=== PATIENT | female | born 1940 | race Caucasian/White ===

== ENCOUNTER → 2018-02-20 | Outpatient (CLI) | payer OTHER | END | disposition home or self-care (01) | LOC: SURGPAT 14:15 | DX: Z01.818 Encounter for other preprocedural examination (principal); I10 Essential (primary) hypertension; E03.9 Hypothyroidism, unspecified; E78.00 Pure hypercholesterolemia, unspecified; R91.8 Other nonspecific abnormal finding of lung field | CPT/HCPCS: 71046; 93005 ==

== ENCOUNTER → 2018-02-26 | Outpatient (CLI) | payer OTHER | END | disposition home or self-care (01) | LOC: LAB 08:37 | DX: Z53.21 Procedure and treatment not carried out due to patient leaving prior to being seen by health care provider (principal) | CPT/HCPCS: 36415; 86850; 86900; 86901 ==

== ENCOUNTER 2018-02-27 05:36 | Observation (INO) | payer OTHER ==
[2018-02-27] MEDS ORDERED: ESTROGENS, CONJ VAGINAL CREAM 30GM TUBE. (06:30)
[2018-02-27] MEDS: IV RINGERS,LACTATED 1000ML 1,000 ML IV (07:00)
[2018-02-27] MEDS ORDERED: fentaNYL PF VIAL 100 MCG/2 ML VIAL IV (07:00)
[2018-02-27] MEDS ORDERED: ONDANSETRON PF 4 MG/2 ML VIAL. IV ×2 (07:00→10:00)
[2018-02-27] MEDS ORDERED: PROCHLORPERAZINE 10 MG/2 ML VIAL. IV (07:00)
[2018-02-27] MEDS ORDERED: LIDOCAINE 1% PF 2 ML VIAL. ID (07:00)
[2018-02-27] MEDS ORDERED: MORPHINE SULFATE 4 MG/ML DISP.SYRIN. IV ×2 (07:00→10:00)
[2018-02-27] MEDS ORDERED: LIDOCAINE 2% PF Vial for OR 5 ML VIAL. (07:16)
[2018-02-27] MEDS ORDERED: PROPOFOL 20 ML IV (07:16)
[2018-02-27] MEDS ORDERED: ROCURONIUM 50 MG/5 ML VIAL. (07:16)
[2018-02-27] MEDS ORDERED: fentaNYL PF VIAL 100 MCG/2 ML VIAL ×2 (07:16→10:05)
[2018-02-27] MEDS ORDERED: ONDANSETRON PF 4 MG/2 ML VIAL. (07:16)
[2018-02-27] MEDS ORDERED: DEXAMETHASONE SOD PHOS 20 MG/5 ML VIAL. (07:16)
[2018-02-27] MEDS ORDERED: BUPIVACAINE-EPI 0.25%-1:200000 50 ML VIAL. (07:56)
[2018-02-27] MEDS: BUPIVACAINE-EPI 0.25%-1:200000 50 ML VIAL. (08:04)
[2018-02-27] MEDS ORDERED: SEVOFLURANE > 120 MINUTES. IH (08:32)
[2018-02-27] MEDS ORDERED: NEOSTIGMINE METHYLSULFATE 5 MG/5 ML SYRINGE. (08:41)
[2018-02-27] MEDS ORDERED: GLYCOPYRROLATE 1 MG/5 ML VIAL. (08:42)
[2018-02-27] MEDS: CETIRIZINE HCL 10 MG TABLET. PO (09:00)
[2018-02-27] MEDS ORDERED: NALOXONE 0.4 MG/ML VIAL. IV (10:00)
[2018-02-27] MEDS ORDERED: SIMETHICONE 80 MG TAB.CHEW PO (10:00)
[2018-02-27] MEDS ORDERED: ZOLPIDEM 5 MG TABLET. PO (10:00)
[2018-02-27] MEDS ORDERED: diphenhydrAMINE 50 MG/ML VIAL IV (10:00)
[2018-02-27] MEDS ORDERED: 0.9 % SODIUM CHLORIDE 10 ML DISP.SYRIN. IV (10:00)
[2018-02-27] MEDS ORDERED: CALCIUM CARBONATE 500 MG TAB.CHEW PO (10:00)
[2018-02-27] MEDS ORDERED: oxyCODONE/APAP 5/325 1 TAB TABLET PO (10:00)
[2018-02-27] MEDS ORDERED: LACTULOSE 20 GM/30 ML SOLUTION. PO (10:00)
[2018-02-27] MEDS ORDERED: MAGNESIUM HYDROXIDE 2,400 MG/30 ML ORAL.SUSP. PO (10:00)
[2018-02-27] MEDS ORDERED: diphenhydrAMINE HCL 25 MG CAPSULE PO (10:00)
[2018-02-27] MEDS ORDERED: MAG HYDROX/ALUMINUM HYD/SIMETH 30 ML ORAL.SUSP PO (10:00)
[2018-02-27] MEDS: fentaNYL PF VIAL 100 MCG/2 ML VIAL IV (10:12)
[2018-02-27] MEDS: ATORVASTATIN CALCIUM 20 MG TABLET PO (21:16)
[2018-02-27] MEDS: OXYBUTYNIN CHLORIDE 5 MG TABLET PO (21:16)
[2018-02-27] MEDS: HYDROcodone/APAP 5/325MG 1 TAB TABLET PO (21:17)
[2018-02-28 04:47] LABS: HEMATOCRIT 34.4 % (36.0-47.0)
[2018-02-28] MEDS ORDERED: amLODIPine BESYLATE 5 MG TABLET PO (07:00)
[2018-02-28] MEDS ORDERED: LISINOPRIL 20 MG TABLET PO (07:00)
[2018-02-28] MEDS ORDERED: DOCUSATE SODIUM 100 MG CAPSULE. PO (07:00)
[2018-02-28] MEDS: LEVOTHYROXINE 125 MCG TABLET PO (07:30)
[2018-02-28] MEDS ORDERED: RALOXIFENE 60 MG TABLET. PO (09:00)
[2018-02-28 10:03] LABS: ANION GAP 7 (6-14); BLOOD UREA NITROGEN 18 mg/dL (7-20); CALCIUM 8.4 mg/dL (8.5-10.1); CARBON DIOXIDE 29 mmol/L (21-32); CHLORIDE 105 mmol/L (98-107); CREATININE 0.6 mg/dL (0.6-1.0); GFR 97.2; GLUCOSE 111 mg/dL (70-99); POTASSIUM 3.4 mmol/L (3.5-5.1); SODIUM 141 mmol/L (136-145)
== END 2018-02-28 09:45 | disposition home or self-care (01) ==
LOC: SURG 05:36 → 3 NORTH 10:00
DX: N72 Inflammatory disease of cervix uteri (principal); N83.8 Other noninflammatory disorders of ovary, fallopian tube and broad ligament; N81.3 Complete uterovaginal prolapse; N80.0 Endometriosis of uterus; K66.0 Peritoneal adhesions (postprocedural) (postinfection)
CPT/HCPCS: 36415; 80048; 85014; 86850; 86900; 86901; 88307; A7015; G0378; G0379; J0690; J1100; J2405; J2704; J2710; J3010; J3490; J7030; J7120

== ENCOUNTER 2019-06-13 17:16 | Emergency (ER) | payer OTHER ==
[~2019-06-13] VITALS: Ht 172.7 cm; Wt 68.9 kg
[~2019-06-13 17:16] MED LIST changes: -HYDR-2761 PO
[2019-06-13 17:40] VITALS: BP 159/69
--- NOTE | 2019-06-13 17:57 | PHYS DOC ---
Past Medical History Past Medical History: Hypertension (BIPIN FLORIAN DO) Past Surgical History: Cholecystectomy (BIPIN FLORIAN DO) Smoking: Cigarettes Alcohol Use: Occasionally Drug Use: None (BIPIN FLORIAN DO) Adult General Chief Complaint Chief Complaint: LOWEREXTREMITY INJURY HPI HPI Patient is a 79 year old female who presents with 11 days ago she was in the garage and tripped and fell injuring the right lower leg. Patient states that the swelling to her right lower leg has gone down dramatically over the past 11 days and she has been ambulating on it. Patient states when she is sitting still and not bringing pressure on the right leg that she has no pain. Patient states that that when she stands up on the leg her pain will be an 8 out of 10 and sharp pain. Patient is the bruising has gotten better also. The bruising has gone down into the toes and there is slight healing bruise to the right lower leg into the ankle and top of the foot. There is 2+ edema to the right lower leg into the ankle and the dorsal foot. Patient can move the ankle with intact range of motion with her toes. Patient denies any numbness or tingling or temperature change in the extremity or skin color change. Skin is pink warm and dry. Pedal pulses strong and present. Cap refill less than 3 seconds. Patient states she has been taking Aleve at home and it has been helping her pain. Patient currently rating her pain a 0 out of 10. (REYNALDO ALVARADO APRN) Review of Systems Review of Systems Constitutional: Denies fever or chills [] Musculoskeletal: Right lower extremity fracture. Denies back pain or joint pain [] Integument: Denies rash or skin lesions [] Neurologic: Denies headache, focal weakness or sensory changes [] All other systems were reviewed and found to be within normal limits, except as documented in this note. (REYNALDO ALVARADO APRN) Allergies Allergies Allergies Coded Allergies Type Severity Reaction Last Updated Verified Sulfa (Sulfonamide Antibiotics) Allergy Intermediate Rash 02/20/18 No (BIPIN FLORIAN DO) Physical Exam Physical Exam Constitutional: Well developed, well nourished, no acute distress, non-toxic appearance. [] Skin: Warm, dry, no erythema, no rash. Healing bruising noted to right lower leg, ankle and foot. [] Back: No tenderness, no CVA tenderness. [] Extremities: Right lower fibula tenderness, no cyanosis, no clubbing, ROM intact, Right lower leg, ankle and foot 2+ edema. [] Neurologic: Alert and oriented X 3, normal motor function, normal sensory function, no focal deficits noted. [] Psychologic: Affect normal, judgement normal, mood normal. [] (REYNALDO ALVARADO APRN) Current Patient Data Vital Signs Vital Signs Date Time Temp Pulse Resp B/P (MAP) Pulse Ox O2 Delivery O2 Flow Rate FiO2 06/13/19 17:40 98.7 71 16 159/69 (99) 93 Room Air 98.7 (BIPIN FLORIAN DO) EKG EKG [] (REYNALDO ALVARADO APRN) Radiology/Procedures Radiology/Procedures [] (REYNALDO ALVARADO APRN) Impressions: [facility] [address] [place] [address] IMAGING REPORT Signed PATIENT: JT CHUNG ACCOUNT: [id number] : 1940 LOCATION: [facility] AGE: 79 SEX: F EXAM STATUS: REG CLI ORD. PHYSICIAN: LUCRETIA ANTHONY DISTRICT DIRECTOR REASON: RT LATERAL ANKLE PAIN/BRUISING/SWELLING S/P FALL 10 DAYS AGO PROCEDURE: ANKLE RIGHT 3V Indication:Right ankle pain. TECHNIQUE: 3 views of the right ankle COMPARISON:None FINDINGS/ impression: Oblique nondisplaced fracture is seen of the distal diaphysis of the fibula approximately 6 cm from the tip of the lateral malleolus. Moderate ankle swelling noted. Ankle mortise is intact. Electronically signed by: Tanner Murrell DO (06/13/2019 2:33 PM) [facility] DICTATED and SIGNED BY: TANNER MURRELL DO DATE: 06/13/19 1485 (REYNALDO ALVARADO APRN) Course & Med Decision Making Course & Med Decision Making Patient is a 79 year old female who presents with 11 days ago she was in the garage and tripped and fell injuring the right lower leg. Patient states that the swelling to her right lower leg has gone down dramatically over the past 11 days and she has been ambulating on it. Patient states when she is sitting still and not bringing pressure on the right leg that she has no pain. Patient states that that when she stands up on the leg her pain will be an 8 out of 10 and sharp pain. Patient is the bruising has gotten better also. The bruising has gone down into the toes and there is slight healing bruise to the right lower leg into the ankle and top of the foot. There is 2+ edema to the right lower leg into the ankle and the dorsal foot. Patient can move the ankle with intact range of motion with her toes. Patient denies any numbness or tingling or temperature change in the extremity or skin color change. Skin is pink warm and dry. Pedal pulses strong and present. Cap refill less than 3 seconds. Patient states she has been taking Aleve at home and it has been helping her pain. Louann ent currently rating her pain a 0 out of 10. Alert and oriented. Patient states she's been up and walking on the extremity from last 11 days. X-ray taken at a [place] [facility] shows: Oblique nondisplaced fracture is seen of the distal diaphysis of the fibula approximately 6 cm from the tip of the lateral malleolus. Moderate ankle swelling noted. Ankle mortise is intact. Patient is put into a stirrup hard splint and told to call orthopedics in the morning for a follow-up appointment. Splint placed by [facility]. Splint Assessment: Neurovascularly intact post splint placement with good fit. (REYNALDO ALVARADO APRN) Dragon Disclaimer Dragon Disclaimer This electronic medical record was generated, in whole or in part, using a voice recognition dictation system. (REYNALDO ALVARADO CAR FERRY MASTER) Departure Departure Impression: Primary Impression: Fibula fracture Disposition: HOME, SELF-CARE Condition: STABLE Referrals: CHERRIE NELSON MD (PCP) NIKOS LADD II, MD Patient Instructions: Fibular Fracture with [facility] Additional Instructions: Follow-up with orthopedics by calling Sunday morning. Take medication if needed for pain. Scripts Hydrocodone Bit/Acetaminophen (HYDROCODONE-APAP 5-325 ) 1 Tab Tablet 1 TAB PO PRN Q6HRS PRN for PAIN, #10 TAB 0 Refills Prov: REYNALDO ALVARADO APRN 06/13/19 Attending Signature Attending Signature I have reviewed the PA/DISTRICT DIRECTOR's note and plan of care. I was available for consultation as needed during the patient's visit in the emergency department. I agree with the clinical impression, plan, and disposition. (BIPIN FLORIAN DO) Problem Qualifiers Primary Impression: Fibula fracture Encounter type: initial encounter Fibula location: distal Fracture type: closed Fracture morphology: other fracture Laterality: right Qualified Codes: S82.831A - Other fracture of upper and lower end of right fibula, initial encounter for closed fracture REYNALDO ALVARADO APRN Jun 13, 2019 17:57 BIPIN FLORIAN DO Jun 14, 2019 03:58
[2019-06-13] MEDS ORDERED: HYDR-2761 PO (18:07)
== END 2019-06-13 18:37 | disposition home or self-care (01) ==
LOC: ER 17:16
DX: S82.831A Other fracture of upper and lower end of right fibula, initial encounter for closed fracture (principal); I10 Essential (primary) hypertension; F17.210 Nicotine dependence, cigarettes, uncomplicated; Z90.49 Acquired absence of other specified parts of digestive tract; Z88.2 Allergy status to sulfonamides; W01.0XXA Fall on same level from slipping, tripping and stumbling without subsequent striking against object, initial encounter; Y93.89 Activity, other specified; Y92.89 Other specified places as the place of occurrence of the external cause; Y99.8 Other external cause status
CPT/HCPCS: 29515; 99283

== ENCOUNTER → 2019-06-13 | Outpatient (CLI) | payer OTHER ==
[2018-02-28 09:00] VITALS: BP 122/74
[~2019-06-13] MED LIST: AMLO5TAB10 PO; ASPI325T8 PO; ATOR20TA58 PO; CALC600T4 PO; CETI10TA16 PO; DOCU100C28 PO; HYDR-2761 PO; LEVO125T5 PO; LISI-130 PO; OXYB5TAB7 PO; RALO60TA PO
--- NOTE | 2019-06-13 14:36 | KCIC ---
Indication:Right ankle pain. TECHNIQUE: 3 views of the right ankle COMPARISON:None FINDINGS/ impression: Oblique nondisplaced fracture is seen of the distal diaphysis of the fibula approximately 6 cm from the tip of the lateral malleolus. Moderate ankle swelling noted. Ankle mortise is intact. Electronically signed by: Tanner Murrell DO (06/13/2019 2:33 PM) [facility]
== END | disposition home or self-care (01) ==
LOC: KCIC 13:21
PROVIDERS: ATTEND Nurse Practitioner Family
DX: S82.64XA Nondisplaced fracture of lateral malleolus of right fibula, initial encounter for closed fracture (principal); M79.89 Other specified soft tissue disorders; M25.471 Effusion, right ankle; W19.XXXA Unspecified fall, initial encounter; Y93.89 Activity, other specified; Y92.89 Other specified places as the place of occurrence of the external cause; Y99.8 Other external cause status
CPT/HCPCS: 73610

== ENCOUNTER → 2021-09-30 | Outpatient (CLI) | payer MEDICARE ==
[~2021-09-30] MED LIST changes: +AMLO-186 PO; -AMLO5TAB10 PO; -CALC600T4 PO; +CALC600T60 PO; +HYDR-2761 PO; +OXYB5TAB10 PO; -OXYB5TAB7 PO
--- NOTE | 2021-10-01 18:00 | RAD ---
EXAM: Bilateral carotid duplex with waveform analysis. CLINICAL HISTORY: Reason: SYNCOPE AND COLLAPSE / Spl. Instructions: / History: . TECHNIQUE: Longitudinal and transverse sonographic images of the bilateral carotid arteries was perfo rmed utilizing grayscale, color and spectral Doppler techniques. COMPARISON: None available FINDINGS: Right Carotid: No visible stenosis or significant plaque. Left Carotid: No visible stenosis or significant plaque. Vertebrals: Antegrade flow bilaterally. Right: PSV CCA (cm/s): 87.0 PSV ICA (cm/s): 98.0 EDV ICA (cm/s): 32.0 PSV ECA (cm/s): 110 Subclavian PSV (cm/s): 159.0 ICA/CCA Ratio: 1.1 Left: PSV CCA (cm/s): 100 PSV ICA (cm/s): 19.0 EDV ICA (cm/s): 30.0 PSV ECA (cm/s): 124.0 Subclavian PSV (cm/s): 172.0 ICA/CCA Ratio: 1.0 Antegrade flow seen in vertebral arteries IMPRESSION: No evidence of carotid stenosis seen. Consensus Panel Grace-scale and Doppler US Criteria for Diagnosis of ICA Stenosis Degree of Stenosis (%) ICA PSV (Cm/sec) Plaque Estimate (%)* Normal <125 None <50 <125 <50 50-69 125-230 >50 >70 but < near occlusion >230 >50 Near occlusion High, low, or undetectable Visible Total occlusion Undetectable Visible, no detectable lumen *Plaque estimate (diameter reduction) with grace-scale and color Doppler US Degree of Stenosis (%) ICA/CCA PSV Ratio ICA EDV (cm/sec) Normal <2.0 <40 <50 <2.0 <40 50-69 2.0-4.0 40-100 >70 but < near occlusion >4.0 >100 Near occlusion Variable Variable Total occlusion Not applicable Not applicable Electronically signed by: Kya Hussein MD (10/01/2021 5:12 PM) [facility]
== END ==
LOC: US 14:57
PROVIDERS: ATTEND Nurse Practitioner
DX: R55 Syncope and collapse (principal)
CPT/HCPCS: 93880

== ENCOUNTER → 2021-10-19 | Outpatient (CLI) | payer MEDICARE ==
--- NOTE | 2021-10-19 18:08 | CARD ---
MR#: [id number] Date of Study: 10/19/2021 Ordering Physician: SYLWIA PARTIDA, Referring Physician: SYLWIA PARTIDA, Tech: Uzma Vazquez [facility] APPROVED REPORT EXAM: Two-dimensional and M-mode echocardiogram with Doppler and color Doppler. Other Information Quality : AverageHR: 71bpm Technically limited study due to body habitus. INDICATION Syncope RISK FACTORS Hypertension Hyperlipidemia Smoking 2D DIMENSIONS RVDd3.7 (2.9-3.5cm)Left Atrium(2D)2.9 (1.6-4.0cm) IVSd1.0 (0.7-1.1cm)Aortic Root(2D)3.6 (2.0-3.7cm) LVDd5.7 (3.9-5.9cm)LVOT Diameter2.0 (1.8-2.4cm) PWd1.2 (0.7-1.1cm)LVDs4.0 (2.5-4.0cm) FS (%) 30.1 %SV90.4 ml LVEF(%)56.7 (>50%) Aortic Valve AoV Peak Marlon.130.5cm/sAoV VTI25.6cm AO Peak GR.6.8mmHgLVOT Peak Marlon.86.5cm/s LVOT VTI 16.09cmAO Mean GR.4mmHg GALA (VMAX)1.12ux1CIL (VTI)2.06cm2 Mitral Valve MV E Fdzbuixt80.0cm/sMV DECEL XUQY081dw MV A Rkelrsza794.7cm/sMV E Mean Gr.2mmHg MV SCM33fcK/A Ratio0.5 MVA (PHT)2.95cm2 TDI E/Lateral E'7.6E/Medial E'12.8 Pulmonary Valve PV Peak Iufakkxj62.0cm/sPV Peak Grad.4mmHg Tricuspid Valve TR P. Ichamvby907gv/sRAP MIUJDBSL6cfVg TR Peak Gr.03akBdFYCP02wjQf Pulmonary Vein S1 Skwbiqns31.2cm/sD2 Wodjjnee63.7cm/s PVa nufxfsyq514anmk LEFT VENTRICLE The left ventricle is normal size. There is mild concentric left ventricular hypertrophy. The systoli c function is mildly impaired. The Ejection Fraction is 40-45%. Septal motion consistent with conduct ion abnormality. Otherwise, mild global hypokinesis. Transmitral Doppler flow pattern is Grade I-abno rmal relaxation pattern. RIGHT VENTRICLE The right ventricle is normal size. There is normal right ventricular wall thickness. The right ventr icular systolic function is normal. ATRIA The left atrium size is normal. The right atrium size is normal. The interatrial septum is intact wit h no evidence for an atrial septal defect or patent foramen ovale as noted on 2-D or Doppler imaging. AORTIC VALVE The aortic valve is normal in structure and function. Doppler and Color Flow revealed trace aortic re gurgitation. There is no significant aortic valvular stenosis. Calculated aortic valve area is 1.93 c m2 with maximum pressure gradient of 8 mmHg and mean pressure gradient of 5 mmHg. MITRAL VALVE The mitral valve is normal in structure and function. There is no evidence of mitral valve prolapse. There is no mitral valve stenosis. Doppler and Color-flow revealed trace mitral regurgitation. TRICUSPID VALVE The tricuspid valve is normal in structure and function. Doppler and Color Flow revealed trace tricus pid regurgitation with an estimated PAP of 35 mmHg. There is no tricuspid valve stenosis. PULMONIC VALVE The pulmonic valve is not well visualized. Doppler and Color Flow revealed no pulmonic valvular regur gitation. There is no pulmonic valvular stenosis. GREAT VESSELS The aortic root is mildly enlarged measuring 3.65 cm. The ascending aorta is mildly dilated measuring 3.7 cm. The IVC is normal in size and collapses >50% with inspiration. PERICARDIAL EFFUSION There is no evidence of significant pericardial effusion. Critical Notification Critical Value: No <Conclusion> The systolic function is mildly impaired. The Ejection Fraction is 40-45%. Septal motion consistent with conduction abnormality. Otherwise, mild global hypokinesis. The ascending aorta is mildly dilated measuring 3.7 cm. Signed by : Chris Guevara, Electronically Approved : 10/19/2021 18:07:20
== END ==
LOC: ECHO 08:44
PROVIDERS: ATTEND Internal Medicine Cardiovascular Disease
DX: I51.7 Cardiomegaly (principal); I51.89 Other ill-defined heart diseases; R55 Syncope and collapse
CPT/HCPCS: 93306

== ENCOUNTER 2021-11-09 10:01 | Observation (INO) | payer MEDICARE ==
[2021-11-09] VITALS (9 sets, daily range): BP systolic 117–158; BP diastolic 54–86
[~2021-11-09] VITALS: Ht 170.2 cm; Wt 69.7 kg
[2021-11-09] MEDS ORDERED: ceFAZolin SODIUM 1 GM in IV NORMAL SALINE 100ML 100 ML IRR ONE ×2 (10:15→11:00)
[2021-11-09] MEDS ORDERED: POLY17PO29 PO (10:27)
[2021-11-09] MEDS ORDERED: LEVO150T5 PO (10:27)
[2021-11-09] MEDS ORDERED: LACT1CAP37 PO (10:27)
[2021-11-09] MEDS ORDERED: MULT-496 PO (10:27)
[2021-11-09 10:50] LABS: HEMATOCRIT 43.6 % (36.0-47.0); HEMOGLOBIN 14.9 g/dL (12.0-15.5); RED BLOOD COUNT 4.75 x10^6/uL (3.50-5.40); RED CELL DISTRIBUTION WIDTH 13.2 % (11.5-14.5); WHITE BLOOD COUNT 9.9 x10^3/uL (4.0-11.0)
[2021-11-09 10:57] LABS: PROTHROMBIN TIME PATIENT 11.8 SEC (11.7-14.0)
[2021-11-09] MEDS ORDERED: ceFAZolin SODIUM IV Push 1 GM VIAL. IVP ONE ×3 (11:00→13:00)
[2021-11-09 11:02] LABS: CALCIUM 9.1 mg/dL (8.5-10.1); CREATININE 0.7 mg/dL (0.6-1.0); GFR 80.7; POTASSIUM 3.6 mmol/L (3.5-5.1)
[2021-11-09] MEDS ORDERED: LIDOCAINE 2%/EPI 1:100,000 20 ML VIAL. ONE (11:05)
[2021-11-09] MEDS ORDERED: fentaNYL PF VIAL 100 MCG/2 ML VIAL ONE (11:08)
[2021-11-09] MEDS ORDERED: MIDAZOLAM HCL/PF 2 MG/2 ML VIAL. ONE (11:08)
[2021-11-09] MEDS ORDERED: MIDAZOLAM HCL/PF 2 MG/2 ML VIAL. IV ONE (11:30)
[2021-11-09] MEDS ORDERED: fentaNYL PF VIAL 100 MCG/2 ML VIAL IV ONE (11:30)
[2021-11-09] MEDS ORDERED: LIDOCAINE 2%/EPI 1:100,000 20 ML VIAL. IJ ONE (11:30)
[2021-11-09] MEDS ORDERED: IODIXANOL 320 MG/ML 100 ML VIAL. ONE (11:59)
[2021-11-09] MEDS ORDERED: IODIXANOL 320 MG/ML 100 ML VIAL. IART ONE (12:00)
[2021-11-09] MEDS ORDERED: CONTRAST GIVEN. MC PRN (12:15)
--- NOTE | 2021-11-09 12:48 | PDOC ---
MODERATE SEDATION ASSESSMENT RISKS/ALTERNATIVES Risks/Alternatives Risks and alternatives of this type of sedation and procedure discussed with: RISK/ALTERNATIVES: Patient H & P ON CHART H & P H & P on chart and reviewed for co-morbid conditions and appropriate labs. H&P ON CHART: Yes STATUS PREG STATUS ASSESSED: N/A MEDS/ALLERGIES REVIEWED Meds/Allergies Reviewed Medications and Allergies including time and route of recently administered narcotics and sedatives. MEDS/ALLERGIES REVIEWED: Yes ASA RATING ASA RATING: II AIRWAY ASSESSMENT Airway Assessment Airway patency, oral function limitations, presence of caps, crowns, dentures, partials, and ability to extend neck assessed. AIRWAY ASSESSMENT: Yes MALLAMPATI SCORE MALLAMPATI SCORE: II PRE-SEDATION ASSESSMENT PRE-SEDATION ASSESSMENT: Yes SYLWIA PARTIDA MD Nov 09, 2021 12:48
[2021-11-09] MEDS ORDERED: oxyCODONE/APAP 5/325 1 TAB TABLET PO PRN (13:00)
--- NOTE | 2021-11-09 13:07 | CARD ---
MR#: [id number] Date of Study: 11/09/2021 Ordering Physician: SYLWIA BRAY, Referring Physician: SYLWIA BRAY, Tech: APPROVED REPORT HISTORY Implantation of Biotronik dual-chamber permanent pacemaker fl time: 5.1 min dose: 5 gycm2 contrast: 15 ml moderate sedation: 56 mins INDICATIONS Tachycardia-bradycardia syndrome/sick sinus syndrome with significant pauses of 4 to 5 seconds and re current syncope PROCEDURE After explaining the risks, benefits, and alternative options, informed consent was obtained from the patient. The patient was brought to the cardiac catheterization lab and the left chest and shoulder were prepp ed and draped in a sterile manner. IV conscious sedation was used throughout procedure with appropriate monitoring and was performed in the presence of a registered nurse who was an independent trained observer other than the physician p erforming the procedure. During this case, Fluoroscopy and low osmolar contrast were used for imaging. Specimen(s) Removed: No Estimated Blood loss: 15 cc's. 30 cc of 2% lidocaine was infiltrated to the skin and subcutaneous tissues for local anesthesia. An incision was made over the left infraclavicular fossa using blunt dissection and cautery, a pocket wa s created. Initial attempts to gain venous access using fluoroscopic landmarks were unsuccessful. C ontrast injections were then performed through peripheral IV line for left subclavian venogram and ac cess was successfully obtained. 9 and 7 [place] sheath was then placed in the left subclavian vein. A Biotronik bipolar active-fixation right ventricular lead model Solia, serial #[id number] was advanc ed under fluoroscopic guidance and the tip was positioned in the right ventricular apex. Following t his, a Biotronik bipolar active-fixation right atrial lead model Solia, serial #[id number] was positi on in the right atrial appendage under fluoroscopic guidance. The leads were secured into place and were attached to a Biotronik dual-chamber permanent pacemaker generator model Edora 8 DR-T, serial #[id number]. This was placed in the pocket that was subsequently closed in 3 layers. Hemostasis was sec ured. The right ventricular lead showed a sensing amplitude of 19 mV, impedance of 731 ohms and a threshold of 0.4 V. The right atrial lead showed a sensing amplitude of 2.3 mV, impedance of 558 ohms and a t hreshold of 0.4 V. Patient tolerated the procedure well. There were no immediate complications. CONCLUSION Successful implantation of Biotronik dual-chamber permanent pacemaker for symptomatic sick sinus/tach ycardia-bradycardia syndrome with significant pauses. Signed by : Sylwia Bray, Electronically Approved : 11/09/2021 13:06:52
--- NOTE | 2021-11-09 13:22 | RAD ---
Single view of the chest. 11/09/2021 12:51 PM Indication: Reason: POST PACEMAKER INSERTION / Spl. Instructions: / History: Comparison: Chest radiograph February 20, 2010 Findings: Dual-lead pacemaking device from a left subclavian approach. No pneumothorax. No pleural ef fusion or focal infiltrate. Mild hyperinflation is coarsening seen. Heart is mildly enlarged. No acut e osseous changes. IMPRESSION: 1. Dual-lead pacemaking device from left subclavian approach. No pneumothorax or other acute cardiopu lmonary process Electronically signed by: Gibran Perez MD (11/09/2021 1:20 PM) [id number]
--- NOTE | 2021-11-09 15:15 | NUR ---
Report given to Pedro PELAEZ and patient taken to room 662. No complaints of pain and patient ambulated to the bathroom without any problems,vital signs stable. Biotronik pacemaker placed to left chest and arm in immobilizer. Patient ate lunch prior to transfer to 6th floor and patient's went with us to patient's room. All personal items taken with patient up to her room.
[2021-11-09] MEDS: OXYBUTYNIN CHLORIDE 5 MG TABLET PO SCH (20:56)
[2021-11-09] MEDS ORDERED: ATORVASTATIN CALCIUM 20 MG TABLET PO SCH (21:00)
[2021-11-10 03:05] VITALS: BP 138/70
[2021-11-10 07:00] VITALS: BP 164/83
[2021-11-10] MEDS ORDERED: LEVOTHYROXINE 150 MCG TABLET PO SCH (07:30)
[2021-11-10] MEDS: OXYBUTYNIN CHLORIDE 5 MG TABLET PO SCH (08:32)
[2021-11-10] MEDS ORDERED: LACTOBACILLUS RHAMNOSUS GG 1 CAPSULE. PO SCH (09:00)
[2021-11-10] MEDS ORDERED: DOCUSATE SODIUM 100 MG CAPSULE. PO SCH (09:00)
[2021-11-10] MEDS ORDERED: ASPIRIN 325 MG TABLET PO SCH (09:00)
[2021-11-10] MEDS ORDERED: RALOXIFENE 60 MG TABLET. PO SCH (09:00)
[2021-11-10] MEDS ORDERED: MULTIVITAMIN with MINERAL TABLET. PO SCH (09:00)
[2021-11-10] MEDS ORDERED: LISINOPRIL 20 MG TABLET PO SCH (09:00)
[2021-11-10] MEDS ORDERED: POLYETHYLENE GLYCOL 3350 17 GM PACKET. PO SCH (09:00)
--- NOTE | 2021-11-10 09:29 | RAD ---
XR CHEST 2V INDICATION: 1 DAY POST PACEMAKER COMPARISON STUDY: 11/09/2021. FINDINGS: Life Support Devices: Left pectoral pacemaker. Lungs: Hyperexpanded lung volume. Bibasilar linear subsegmental atelectasis. Pleura: No pleural effusion or pneumothorax. Heart and Mediastinum: Stable cardiomediastinal silhouette and great vessels. IMPRESSION: No pneumothorax. No consolidation. Electronically signed by: Richard Aguilar MD (11/10/2021 9:27 AM) [id number]
[2021-11-10 11:00] VITALS: BP 154/75
--- NOTE | 2021-11-10 11:20 | NUR ---
SS following for discharge planning. SS reviewed pt chart and discussed with pt RN. Pt is from home with spouse and is currently on room air. COVID19 negative. Cardiology following. Pt had pacemaker placement on 11/09/2021. Discharge plan is currently to home when medically ready for discharge. SS will continue to follow for discharge planning.
--- NOTE | 2021-11-10 12:08 | PDOC3 ---
MOLLY MUNOZ [employer]S AND [employer]ION ENGINEER 11/10/21 1208: Discharge Summary Visit Information Date of Admission: Nov 09, 2021 Date of Discharge: Nov 10, 2021 Admitting Diagnosis: Tachy ioana syndrome, syncope, AFIB, cardiomyopathy Final Diagnosis Tachy ioana syndrome, S/P PPM, recurrent syncope, cardiomyopathy Brief Hospital Course Allergies Allergies Coded Allergies Type Severity Reaction Last Updated Verified Sulfa (Sulfonamide Antibiotics) Allergy Intermediate Rash 02/20/18 No Vital Signs Vital Signs Date Time Temp Pulse Resp B/P (MAP) Pulse Ox O2 Delivery O2 Flow Rate FiO2 11/10/21 08:34 79 164/83 11/10/21 08:00 Room Air 11/10/21 07:00 98.3 18 96 98.3 11/09/21 12:35 2.0 Lab Results Laboratory Tests Test 11/09/21 10:30 White Blood Count 9.9 x10^3/uL (4.0-11.0) Red Blood Count 4.75 x10^6/uL (3.50-5.40) Hemoglobin 14.9 g/dL (12.0-15.5) Hematocrit 43.6 % (36.0-47.0) Mean Corpuscular Volume 92 fL (79-100) Mean Corpuscular Hemoglobin 31 pg (25-35) Mean Corpuscular Hemoglobin Concent 34 g/dL (31-37) Red Cell Distribution Width 13.2 % (11.5-14.5) Platelet Count 232 x10^3/uL (140-400) Prothrombin Time 11.8 SEC (11.7-14.0) Prothromb Time International Ratio 0.9 (0.8-1.1) Sodium Level 141 mmol/L (136-145) Potassium Level 3.6 mmol/L (3.5-5.1) Chloride Level 102 mmol/L (98-107) Carbon Dioxide Level 31 mmol/L (21-32) Anion Gap 8 (6-14) Blood Urea Nitrogen 23 mg/dL (7-20) Creatinine 0.7 mg/dL (0.6-1.0) Estimated GFR (Cockcroft-Gault) 80.7 Glucose Level 103 mg/dL (70-99) Calcium Level 9.1 mg/dL (8.5-10.1) Brief Hospital Course Ms Salmeron is a 81 yo female who was diagnosed with tachy ioana syndrome with recurrent syncope. She has been admitted for PPM placement. She had a successful implantation of Biotronik dual-chamber permanent pacemaker without any immediate complications. Denies surgical pain and denies any SOA or palpitations. She is AOx3. LSCTA, left chest surgical incision intact, no swelling, or erythema and intact with streistrips. Sling is in place. SR, S1/S2 without significnat murmur. Adb is soft and nontender and no significnat peripheral edema. She also has been noted PAFIB and multiple ventricular ectopies per recent [facility]. She is to start toprol and eliquis for stroke prevention. Will interrogate device further and note burden in terms of her arrhythmias and will consider for antiarrhythmic therapy. PPM instruction reviewed and will see her in office in 2 weeks for wound check. Repeat interrogation revealed normal function of device. Will also arrange for future ischemic workup. Discharge Information Condition at Discharge: Stable Follow Up: Weeks (2) Disposition/Orders: D/C to Home Scheduled Amlodipine Besylate (Amlodipine Besylate) 5 Mg Tablet, 5 MG PO DAILY07, (Reported) Entered as Reported by: RAYMUNDO JIMENEZ on 02/20/181538 Last Taken: Unknown Dose on 11/09/21 Last Action: Continued on 11/09/211730 by Pedro العراقي Apixaban (Eliquis) 5 Mg Tablet, 5 MG PO BID for afib for 30 Days, #60 Ref 3 Prescribed by: MOLLY MUNOZ on 11/10/21 1337 Atorvastatin Calcium (Atorvastatin Calcium) 20 Mg Tablet, 20 MG PO HS for FOR CHOLESTEROL, #30 Ref 0 (Reported) Entered as Reported by: RAYMUNDO JIMENEZ on 02/20/181538 Last Action: Continued on 11/09/211730 by Pedro العراقي Docusate Sodium (Docusate Sodium) 100 Mg Capsule, 20 MG PO DAILY07, (Reported) Entered as Reported by: RAYMUNDO JIMENEZ on 02/20/181538 Last Action: Continued on 11/09/211730 by Pedro العراقي Lactobacillus Combo No.10 (Probiotic) 1 Each Capsule, 1 TAB PO DAILY for for 30 Days, #30 Ref 0 (Reported) Entered as Reported by: MANGO GARCIA on 11/09/21 1027 Last Action: Converted on 11/09/211730 by Pedro العراقي Levothyroxine Sodium (Levothyroxine Sodium) 150 Mcg Tablet, 150 MCG PO DAILYAC for THYROID SUPPLEMENT, #30 Ref 0 (Reported) Entered as Reported by: MANGO GARCIA on 11/09/21 102 Last Taken: Unknown Dose on 11/09/21 Last Action: Continued on 11/09/211730 by Pedro العراقي Lisinopril (Lisinopril) 40 Mg Tablet, 1 TAB PO DAILY07, #30 Ref 5 (Reported) Entered as Reported by: RAYMUNDO JIMENEZ on 02/20/181538 Last Taken: Unknown Dose on 11/09/21 Last Action: Continued on 11/09/211730 by Pedor العراقي Metoprolol Succinate (Metoprolol Succinate ( Xl )) 25 Mg Tab.er.24h, 1 TAB PO DAILY for arrhythmia for 30 Days, #30 Ref 3 Prescribed by: MOLLY MUNOZ on 11/10/21 1337 Multivitamin (Daily Value) 1 Each Tablet, 1 TAB PO DAILY for for 30 Days, #30 Ref 0 (Reported) Entered as Reported by: MANGO GARCIA on 11/09/21 102 Last Action: Converted on 11/09/211730 by Pedro العراقي Oxybutynin Chloride (Oxybutynin Chloride) 5 Mg Tablet, 1 TAB PO BID, #60 Ref 11 (Reported) Entered as Reported by: RAYMUNDO JIMENEZ on 02/20/181538 Last Action: Continued on 11/09/211730 by Pedro العراقي Polyethylene Glycol 3350 (Miralax) 17 Gm Powd.pack, 1 PKT PO DAILY for , (Reported) Entered as Reported by: MANGO GARCIA on 11/09/21 102 Last Action: Continued on 11/09/211730 by Pedro العراقي Raloxifene Hcl (Evista) 60 Mg Tablet, 1 TAB PO DAILY, #30 Ref 11 (Reported) Entered as Reported by: RAYMUNDO JIMENEZ on 02/20/181538 Last Action: Continued on 11/09/211730 by Pedro العراقي Discontinued Medications Aspirin (Aspirin) 325 Mg Tablet, 650 MG PO DAILY for , (Reported) Entered as Reported by: RAYMUNDO JIMENEZ on 02/20/181538 Last Action: Continued on 11/09/211730 by Pedro العراقي Patient Instructions Patient Instructions Must know & what to expect after device implant: 1. Your surgical dressing should be removed prior to discharge from the hospital, but allow the steri- strips to fall off naturally. 2. Activity restrictions: DO NOT raise arm above shoulder level, lift anything heavier than a gallon of milk, and no push or pull motions such as vacuuming/lawn mowing, no swinging motions (golf), etc for 4 weeks. 3. It is OK to use a cell phone or other electronic devices just be sure you do not store it in a breast pocket on the side where the device was placed. 4. Device will be interrogated prior to your discharge from the hospital and then every 3 months for defibrillators and every 6 months for pacemakers. You may be asked to have your device checked remotely from home as well, but this will depend on your particular physicians preference. 5. You may remove the arm immobilizer the day after device placement. Wear the arm immobilizer/splint at night (during sleep times) for 2 week to prevent unintended arm movement that can cause lead dislodgement. 6. Do not drive for one week as the task of driving may lead to unintended arm motion that may cause lead dislodgement. The seatbelt will also rub against the incision site & cause irritation. 7. It is our recommendation that you utilize Tylenol at home for pain control. You need to call our office if you are having uncontrollable pain at the incision site. 8. Keep your incision clean and dry. It is OK to shower. DO NOT submerge in bath, pool, or hot tub, until cleared by your doctor, as this could lead to increase risk of infection.. It is OK to use regular soap just do not scrub the incision site. Water spray from shower should not directly hit the incision. Be sure to blot dry not rub. 9. Inspect your incision daily. If you notice any increased redness, swelling, or drainage, or if you start running a fever, call the office immediately. The number is [phone]. 10. For women, if you need to protect against irritation from the bra straps, you can place a piece of gauze over the incision site for cushion. Please be sure to tape it loosely to allow air to the site & remove the gauze when you remove the bra. 11. Be sure to carry your device identification information card in your wallet/purse at all times. 12. It is OK to go through security at the airport with your device, but be sure to let the TSA know prior to proceeding as the security settings change depending on varying factors. Please do whatever is requested by security at that time. 13. Some of the newer devices may be MRI compatible but, currently, the use of these devices is not widespread, so you likely will not be able to have an MRI. Please clarify this with your physician. If at any time, you feel lightheaded or dizzy/faint, stop what you are doing & lie down immediately. If you are driving, get to the side of the road quickly, turn your car off & call 911 on your cell phone. DO NOT continue to drive as this may cause an accident that seriously injures yourself &/or others. Call the office at [phone] for any questions or concerns. Justicifation of Admission Dx: Justifications for Admission: Justification of Admission Dx: Yes SYLWIA PARTIDA MD 11/11/21 0602: Discharge Summary Brief Hospital Course Brief Hospital Course Agree with MECHANIC AND WELDER's assessment and plan. Patient underwent successful dual chamber PPM implantation for SSS/tachy-ioana syndrome. Device interrogation showed normal function and CXR without pneumothorax. She is presently in SR. Start metoprolol for rate control and eliquis for stroke prophylaxis. We will monitor AF burden during device interrogations and consider antiarrhythmic therapy if AF burden is high. Follow up as scheduled. Discharge Information Scheduled Amlodipine Besylate (Amlodipine Besylate) 5 Mg Tablet, 5 MG PO DAILY07, (Reported) Entered as Reported by: RAYMUNDO JIMENEZ on 02/20/181538 Last Taken: Unknown Dose on 11/09/21 Last Action: Continued on 11/09/21 1731 by Pedro العراقي Apixaban (Eliquis) 5 Mg Tablet, 5 MG PO BID for afib for 30 Days, #60 Ref 3 Prescribed by: MOLLY MUNOZ on 11/10/21 1337 Atorvastatin Calcium (Atorvastatin Calcium) 20 Mg Tablet, 20 MG PO HS for FOR CHOLESTEROL, #30 Ref 0 (Reported) Entered as Reported by: RAYMUNDO JIMENEZ on 02/20/181538 Last Action: Continued on 11/09/211730 by Pedro العراقي Docusate Sodium (Docusate Sodium) 100 Mg Capsule, 20 MG PO DAILY07, (Reported) Entered as Reported by: RAYMUNDO JIMENEZ on 02/20/181538 Last Action: Continued on 11/09/211730 by Pedro العراقي Lactobacillus Combo No.10 (Probiotic) 1 Each Capsule, 1 TAB PO DAILY for for 30 Days, #30 Ref 0 (Reported) Entered as Reported by: MANGO GARCIA on 11/09/211026 Last Action: Converted on 11/09/211730 by Pedro العراقي Levothyroxine Sodium (Levothyroxine Sodium) 150 Mcg Tablet, 150 MCG PO DAILYAC for THYROID SUPPLEMENT, #30 Ref 0 (Reported) Entered as Reported by: MANGO GARCIA on 11/09/211026 Last Taken: Unknown Dose on 11/09/21 Last Action: Continued on 11/09/211730 by Pedro العراقي Lisinopril (Lisinopril) 40 Mg Tablet, 1 TAB PO DAILY07, #30 Ref 5 (Reported) Entered as Reported by: RAYMUNDO JIMENEZ on 02/20/181538 Last Taken: Unknown Dose on 11/09/21 Last Action: Continued on 11/09/211730 by Pedro العراقي Metoprolol Succinate (Metoprolol Succinate ( Xl )) 25 Mg Tab.er.24h, 1 TAB PO DAILY for arrhythmia for 30 Days, #30 Ref 3 Prescribed by: MOLLY MUNOZ on 11/10/21 1337 Multivitamin (Daily Value) 1 Each Tablet, 1 TAB PO DAILY for for 30 Days, #30 Ref 0 (Reported) Entered as Reported by: MANGO GARCIA on 11/09/211026 Last Action: Converted on 11/09/211730 by Pedro العراقي Oxybutynin Chloride (Oxybutynin Chloride) 5 Mg Tablet, 1 TAB PO BID, #60 Ref 11 (Reported) Entered as Reported by: RAYMUNDO JIMENEZ on 02/20/181538 Last Action: Continued on 11/09/211730 by Pedro العراقي Polyethylene Glycol 3350 (Miralax) 17 Gm Powd.pack, 1 PKT PO DAILY for , (Reported) Entered as Reported by: MANGO GARCIA on 1/19/22 1027 Last Action: Continued on 11/09/211730 by Pedro العراقي Raloxifene Hcl (Evista) 60 Mg Tablet, 1 TAB PO DAILY, #30 Ref 11 (Reported) Entered as Reported by: RAYMUNDO JIMENEZ on 02/20/181538 Last Action: Continued on 11/09/211730 by Pedro العراقي Discontinued Medications Aspirin (Aspirin) 325 Mg Tablet, 650 MG PO DAILY for , (Reported) Entered as Reported by: RAYMUNDO JIMENEZ on 02/20/181538 Last Action: Continued on 11/09/211730 by MOLLY Wright APRN Nov 10, 2021 12:08 SYLWIA PARTDIA MD Nov 11, 2021 06:02
[2021-11-10] MEDS ORDERED: METO-239 PO (13:37)
[2021-11-10] MEDS ORDERED: APIX5TAB PO (13:37)
--- NOTE | 2021-11-10 13:50 | NUR ---
Discharge Note: [facility] Discharge instructions and discharge home medications reviewed with Patient and a copy given. All questions have been answered and understanding verbalized. The following instructions and handouts were given: information about new medications,activity, diet, post pacemaker instruction sheet, follow up appointment. Discontinued lines and drains: IV line in right forearm removed, catheter tip intact. Patient discharged to home with self care with , wheelchair used for mobility to discharge vehicle.
== END 2021-11-10 13:50 | disposition home or self-care (01) ==
LOC: CCL 10:01 → 6 SOUTH 14:56
PROVIDERS: ADMIT Internal Medicine Cardiovascular Disease; ATTEND Internal Medicine Cardiovascular Disease
DX: I49.5 Sick sinus syndrome (principal); I25.5 Ischemic cardiomyopathy; I48.0 Paroxysmal atrial fibrillation; I10 Essential (primary) hypertension; E78.00 Pure hypercholesterolemia, unspecified; E03.9 Hypothyroidism, unspecified; E78.5 Hyperlipidemia, unspecified; R55 Syncope and collapse; Z79.01 Long term (current) use of anticoagulants; Z79.82 Long term (current) use of aspirin; Z68.25 Body mass index [BMI] 25.0-25.9, adult; Z90.710 Acquired absence of both cervix and uterus; Z79.899 Other long term (current) drug therapy; Z98.890 Other specified postprocedural states; Z90.49 Acquired absence of other specified parts of digestive tract; Z87.891 Personal history of nicotine dependence; Z45.018 Encounter for adjustment and management of other part of cardiac pacemaker
CPT/HCPCS: 33208; 36415; 71045; 71046; 75820; 80048; 85027; 85610; 96374; 99152; 99153; C1785; G0378; G0379; J0690; J2250; J3010; J3490; Q9967